=== PATIENT | female | born 1950 | race Caucasian/White ===

== ENCOUNTER → 2017-07-24 08:11 | Outpatient (CLI) | payer MEDICARE, OTHER, SELFPAY ==
[2017-07-24 09:47] LABS: Hemoglobin A1C% w Est Avg Glu 6.3 % (4.0-6.0)
[2017-07-24 09:49] LABS: Add Manual Diff / Slide Review NO; Basophils Percent Auto 1.2 % (0-2); Eosinophils Percent Auto 3.5 % (2-4); Hematocrit 36.5 % (36-46); Hemoglobin 12.1 g/dL (12.0-16.0); Lymphocytes Percent Auto 30.9 % (25-40); Mean Corpuscular HGB Conc 33.3 % (30-36); Mean Corpuscular Hemoglobin 26.6 PG (26-34); Mean Corpuscular Volume 79.8 fL (80-100); Monocytes Percent Auto 7.6 % (3-14); Neutrophils Absolute Auto 3100 /uL (3000-5900); Neutrophils Percent Auto 56.8 % (50-75); Platelet Count 228 X10^3/uL (150-400); Red Blood Cell Count 4.57 X10^6/uL (4.0-5.2); Red Cell Distribution Width 15.6 % (11.6-14.8); White Blood Cell Count 5.5 X10^3/uL (4.5-11.0)
[2017-07-24 10:18] LABS: HEMOLYSIS < 15 (0-50); Iron 48 ug/dL (37-170)
[2017-07-24 10:29] LABS: Transferrin 338 mg/dL (206-381)
[2017-07-24 10:31] LABS: Aspartate Aminotransferase 16 IU/L (14-36); BUN Creatinine Ratio 31.7 (6-22); Calcium 9.9 mg/dL (8.4-10.2); Cholesterol 195 mg/dL (140-199); Estimated Glomerular Filt Rate > 60.0 mL/min (>60); Glucose 120 mg/dL (80-110); HDL Cholesterol 65 mg/dL (40-60); HEMOLYSIS < 15 (0-50); LDL Cholesterol Calculated 103 mg/dL (<100); Sodium 141 mmol/L (137-145); Triglycerides 137 mg/dL (35-150)
[2017-07-24 10:33] LABS: Vitamin D 25 Hydroxy (D3) 47.5 ng/mL (30.0-100.0)
[2017-07-24 10:58] LABS: Ferritin 12.4 ng/mL (11.1-264)
[2017-07-24 11:05] LABS: Creatinine Urine Random 31.6 mg/dL; Protein (Total) Urine Random 16 mg/dL (0-12)
[2017-07-24 12:30] LABS: Percent Iron Saturation 11 % (15-50); Total Iron Binding Capacity 423 ug/mL (265-497)
== END ==
PROVIDERS: Family Provider Internal Medicine; PCP Internal Medicine; Visit Provider Internal Medicine
DX: E11.9 Type 2 diabetes mellitus without complications (principal); E78.00 Pure hypercholesterolemia, unspecified; D50.9 Iron deficiency anemia, unspecified; I10 Essential (primary) hypertension; E55.9 Vitamin D deficiency, unspecified
CPT/HCPCS: 36415; 80048; 80061; 82306; 82570; 82728; 83036; 83540; 83550; 84156; 84450; 85025

== ENCOUNTER → 2017-12-10 09:21 | Outpatient (CLI) | payer MEDICARE, OTHER, SELFPAY ==
--- NOTE | 2017-12-10 | DI.MG.S_ITS ---
BILATERAL DIGITAL SCREENING MAMMOGRAM 3D/2D WITH CAD: 12/10/2017 CLINICAL: Routine screening. Comparison is made to exams dated: 11/03/2013 mammogram, 12/15/2011 mammogram, 08/28/2010 mammogram, and 01/02/2015 mammogram - [facility]. The tissue of both breasts is heterogeneously dense. This may lower the sensitivity of mammography. Current study was also evaluated with a Computer Aided Detection (CAD) system. No significant masses, calcifications, or other findings are seen in either breast. There has been no significant interval change. IMPRESSION: NEGATIVE There is no mammographic evidence of malignancy. A 1 year screening mammogram is recommended. NOTE: For mammograms, a report in lay terms will be sent to the patient. Approximately 15% of breast malignancies will not be visualized mammographically. In the management of a palpable breast mass, a negative mammogram must not discourage biopsy of a clinically suspicious lesion. Electronically Signed By: Abisai wilkerson/esperanza:12/10/2017 10:42:44 letter sent: Normal Exam ACR BI-RADS Category 1: Negative 3341F
== END ==
PROVIDERS: Family Provider Internal Medicine; PCP Internal Medicine; Visit Provider Internal Medicine
DX: Z12.31 Encounter for screening mammogram for malignant neoplasm of breast (principal)
CPT/HCPCS: 77063; 77067

== ENCOUNTER → 2018-05-31 09:35 | Outpatient (CLI) | payer MEDICARE, OTHER, SELFPAY ==
--- NOTE | 2018-05-31 10:02 | DI.CT.S_ITS ---
PROCEDURE: CT HEAD/BRAIN WO CON INDICATIONS: Mild cognitive impairment TECHNIQUE: Noncontrast 4.5 mm thick angled axial sections acquired from the foramen magnum to the vertex, with coronal and sagittal reformats. For radiation dose reduction, the following was used: automated exposure control, adjustment of mA and/or kV according to patient size. COMPARISON: Outside Facility, RG, CT HEAD W/O CONTRAST, 05/01/2016, 11:46. FINDINGS: Image quality: Excellent. CSF spaces: Basal cisterns are patent. No extra-axial fluid collections. The ventricles are symmetric in size and shape. Brain: No intracranial bleeds or masses. There is cerebral volume loss for age, with resultant ventricular and sulcal prominence. There are periventricular and deep white matter chronic small vessel ischemic changes. There is intracranial internal carotid artery atherosclerosis. Skull and face: Calvarium and visualized facial bones appear intact, without suspicious lesions. Sinuses: Mucosal thickening noted in the visualized right maxillary sinus. The mastoids are clear. IMPRESSION: 1. No acute intracranial disease process. 2. Mild, diffuse cerebral volume loss 3. Mild periventricular and subcortical white matter chronic microvascular ischemic changes. Dictated by: Mone Pastrana MD, PhD on 05/31/2018 at 12:46 Approved by: Mone Pastrana MD, PhD on 05/31/2018 at 12:49
== END ==
PROVIDERS: PCP Internal Medicine; Visit Provider Internal Medicine
DX: G31.84 Mild cognitive impairment of uncertain or unknown etiology (principal); R41.81 Age-related cognitive decline
CPT/HCPCS: 70450

== ENCOUNTER → 2018-11-09 15:34 | Outpatient (CLI) | payer MEDICARE, OTHER, SELFPAY ==
--- NOTE | 2018-11-09 | DI.US.S_ITS ---
PROCEDURE: US ABDOMEN LIMITED INDICATIONS: EPIGASTRIC PAIN, N/V TECHNIQUE: Real-time focused scanning was performed of the abdomen, with image documentation. COMPARISON: None. FINDINGS: Liver is diffusely increased in echogenicity. No focal hepatic abnormalities identified. Normal hepatic size. No gallstones identified. Normal gallbladder wall. No pericholecystic fluid. Negative sonographic Kevin sign. No biliary dilatation. IMPRESSION: Minimally increased hepatic echogenicity noted possibly related to hepatic steatosis but other sources of hepatocellular disease cannot be excluded. Recommend clinical correlation. Dictated by: Jeremie CHAND Interpreted: Ana Morales MD on 11/09/2018 at 16:26 Approved by: Ana Morales M.D. on 11/09/2018 at 17:59
== END ==
PROVIDERS: PCP Internal Medicine; Visit Provider Internal Medicine
DX: R10.13 Epigastric pain (principal); R11.2 Nausea with vomiting, unspecified
CPT/HCPCS: 76705

== ENCOUNTER 2019-01-12 15:39 | Emergency (ER) | payer MEDICARE, OTHER, SELFPAY ==
[2019-01-12 15:46] VITALS: BP 170/90; PULSE 83; RESP 18; TEMP 37.3; O2SAT 97; BMI 26.6
--- NOTE | 2019-01-12 16:17 | ED.GENADULT ---
HPI - General Adult General Chief complaint: Abdominal Pain Stated complaint: upper abdominal pain,vomiting,not feeling well Time Seen by Provider: 01/12/19 16:13 Source: patient Mode of arrival: Wheelchair Limitations: no limitations History of Present Illness HPI narrative: 68-year-old female sent over from her primary doctor's office for evaluation of epigastric/right upper quadrant abdominal pain. Patient does state she has been evaluated for gallbladder issues in the past. She does state is bilateral upper abdominal pain. Some nausea no vomiting. No urinary symptoms. No change in her stool. Primary provider was concerned about potential gallbladder pathology. Patient states that she is normally on omeprazole however has been off of it for the past week she has been taking her 's famotidine since that time. She also took some Pepto-Bismol last evening which seemed to help her symptoms quite a bit. Related Data Home Medications Medication Instructions Recorded Confirmed AMLODIPINE BESYLATE (NORVASC) 5 mg PO Q AM #0 08/05/09 CHOLECALCIFEROL (VITAMIN D3) 2,000 iu PO Q AM #0 08/05/09 (Vitamin D3) Cetirizine Hydrochloride (Zyrtec) 10 mg PO Q AM #0 08/05/09 HYDROCHLOROTHIAZIDE (Hydrodiuril / 25 mg PO Q AM #0 08/05/09 Hctz) VITAMIN C - 1,000 mg PO BID #0 08/05/09 (VITAMIN C) gabapentin [Neurontin] PRN PRN #0 01/31/16 Previous Rx's Medication Instructions Recorded oxycodone 5 mg PO Q4HP PRN #60 tab 10/30/16 acetaminophen 325 mg PO Q4HP PRN #60 tab 10/31/16 aspirin 81 mg PO BID #60 tab 10/31/16 Allergies Allergy/AdvReac Type Severity Reaction Status Date / Time lisinopril [LISINOPRIL] Allergy Severe ANGIOEDEMA Unverified 01/12/19 16:34 alendronate sodium Allergy Unknown BODY Unverified 01/12/19 16:34 [ALENDRONATE SODIUM] ACHES, DIARRHEA-UNKNOWN SEVERITY PER PT hydrocodone [HYDROCODONE] Allergy Unknown UNCONTROLLABLE Unverified 01/12/19 16:34 DIARRHEA, VOMITING-DOESN'T REMEMBER PER PT Penicillins [PENICILLINS] Allergy Unknown RASH-UNKNOWN Unverified 01/12/19 16:34 SEVERITY PER PT tramadol [TRAMADOL] Allergy Unknown UNKNOWN Unverified 01/12/19 16:34 REACTION PER PT hydroxyzine [From VISTARIL] AdvReac Unknown PT BECOMES Unverified 01/12/19 16:34 VERY DISORIENTED Review of Systems Constitutional Constitutional: Denies fever(s) Cardiovascular Cardiovascular: Denies chest pain and Denies dyspnea Respiratory Respiratory: Denies dyspnea Gastrointestinal Gastrointestinal: Reports abdominal pain, Denies change in stool character, Reports nausea and Denies vomiting Genitourinary Genitourinary: Denies dysuria Musculoskeletal Musculoskeletal: Denies myalgias and Denies arthralgias Integumentary/Breasts Skin/Breast: Denies lesions and Denies rash Neurologic Neurologic: Denies behavioral changes Psychiatric Psychiatric: Denies behavioral changes Hematologic/Lymphatic Hematologic/Lymphatic: Denies easy bleeding and Denies easy bruising Patient History Medical History Gastroesophageal reflux disease (Acute) Hyperlipidemia (Inactive) Hypertension (Inactive) Social History Smoking Status: Never smoker alcohol intake frequency: holidays/special occasions only Substance Use Type: does not use Exam Initial Vital Signs Initial Vital Signs: Vital Signs Temperature 99.2 F 01/12/19 15:46 Pulse Rate 83 01/12/19 15:46 Respiratory Rate 18 01/12/19 15:46 Blood Pressure 170/90 H 01/12/19 15:46 Pulse Oximetry 97 01/12/19 15:46 Const General: cooperative and comfortable Orientation: alert, awake and oriented x3 Resp Effort & Inspection: normal respiratory effort Auscultation: clear to auscultation bilaterally Cardio Rate: regular rate Rhythm: regular rhythm GI Inspection: non-distended Palpation: soft, No firm and tender (Bilateral upper abdominal pain) Back/Spine/Pelvis Back: No CVA tenderness Skin Lesions: no lesions Rashes: no rashes Neuro General: alert and awake Cognition: normal cognition Speech: speech normal Extrem General: normal to inspection, capillary refill normal and No edema Psych Appearance: grossly normal and well kempt Course Orders Ordered: ED Orders 01/12/19 16:15 Complete Blood Count AUTO DIFF Stat Partial Thromboplastin Time Stat Prothrombin Time INR Stat 01/12/19 16:23 EKG-12 Lead Stat 01/12/19 16:24 US abdomen limited Stat 01/12/19 17:04 Comprehensive Metabolic Panel Stat Lipase Stat Discontinued Medications Acetaminophen (Tylenol) 975 mg PO NOW ONE Stop: 01/12/19 18:46 Last Admin: 01/12/19 18:54 Dose: 975 mg Documented by: NIGEL Sodium Chloride (Normal Saline 0.9%) 1,000 mls @ 1,000 mls/hr IV BOLUS ONE Stop: 01/12/19 17:33 Last Infusion: 01/12/19 18:02 Dose: 0 mls/hr Documented by: Admin: 01/12/19 16:35 Dose: 1,000 mls/hr Documented by: PRERNA Ondansetron HCl (Zofran) 4 mg IV NOW ONE Stop: 01/12/19 16:34 Last Admin: 01/12/19 16:42 Dose: 4 mg Documented by: PRERNA Pantoprazole Sodium (Protonix) 40 mg IV NOW ONE Stop: 01/12/19 16:24 Last Admin: 01/12/19 16:35 Dose: 40 mg Documented by: PRERNA Vital Signs Vital signs: Vital Signs - 8 hr 01/12/19 15:46 01/12/19 17:12 01/12/19 18:00 Temperature 99.2 F Pulse Rate 83 76 62 Respiratory Rate 18 17 15 Blood Pressure 170/90 H Blood Pressure [Right Arm] 147/68 H 124/61 Pulse Oximetry 97 93 100 01/12/19 18:58 Temperature Pulse Rate 60 Respiratory Rate 18 Blood Pressure Blood Pressure [Right Arm] 122/78 Pulse Oximetry 98 Medical Decision Making Lab Data Lab results reviewed: Yes I reviewed the patient's lab results. Result diagrams: 01/12/19 16:15 01/12/19 17:04 Labs: Lab Results 01/12/19 01/12/19 01/12/19 Range/Units 16:15 16:15 17:04 WBC 11.0 (4.5-11.0) X10^3/uL RBC 4.89 (4.0-5.2) X10^6/uL Hgb 11.7 L (12.0-16.0) g/dL Hct 36.4 (36-46) % MCV 74.3 L (80-100) fL MCH 24.0 L (26-34) PG MCHC 32.2 (30-36) % RDW 15.9 H (11.6-14.8) % Plt Count 326 (150-400) X10^3/uL Neut % (Auto) 81.2 H (50-75) % Lymph % (Auto) 10.7 L (25-40) % [place] % (Auto) 7.8 (3-14) % Eos % (Auto) 0.0 L (2-4) % Baso % (Auto) 0.3 (0-2) % Neut # (Auto) 8900 H (6447-8384) /uL Lymph # (Auto) 1200 (4306-1461) /uL [place] # (Auto) 900 (0-900) /uL Eos # (Auto) 0 (0-450) /uL Baso # (Auto) 0 (0-100) /uL PT 11.9 (10.1-12.7) SECONDS INR 1.0 (0.9-1.3) APTT 30 (26.4-36.2) SECONDS Sodium 139 (137-145) mmol/L Potassium 2.8 L (3.4-5.1) mmol/L Chloride 100 (98-107) mmol/L Carbon Dioxide 27 (22-32) mmol/L BUN 15 (7-17) mg/dL Creatinine 0.60 (0.52-1.04) mg/dL Estimated GFR > 60.0 (>60) mL/min BUN/Creatinine Ratio 25.0 H (6-22) Glucose 173 H (80-110) mg/dL Calcium 9.4 (8.4-10.2) mg/dL Total Bilirubin 0.5 (0.2-1.3) mg/dL AST 23 (14-36) IU/L ALT 9 (<35) IU/L Alkaline Phosphatase 105 (38-126) U/L Total Protein 8.1 (6.3-8.2) g/dL Albumin 4.6 (3.5-5.0) g/dL Globulin 3.5 (1.7-4.1) g/dL Albumin/Globulin Ratio 1.3 (1.0-2.8) Lipase 148 (23-300) U/L Imaging Data US - abdomen: Radiologist's impression: [address] [address] Ultrasound Report Signed Patient: Edith Marquis LMR#: [id number] : 1950Acct:[id number] Age/Sex: 68 / FDate of Service: 01/12/19 Loc: ED Accession Number: [id number] Procedure: US abdomen limited Ordering Provider: Dejon Marin D.O. PROCEDURE: US ABDOMEN LIMITED INDICATIONS: RIGHT UPPER QUADRANT PAIN EVALUATE FOR GALLBLADDER PATHOLOGY TECHNIQUE: Real-time focused scanning was performed of the abdomen, with image documentation. COMPARISON: [facility], US ABDOMEN LIMITED, 11/09/2018, 15:53. FINDINGS: Imaged portions of the liver appear to be within normal limits. No focal liver lesions are identified. There is no intrahepatic or extrahepatic biliary dilatation. The common bile duct measures approximately 4 mm in diameter. There is no cholelithiasis or evidence to suggest gallbladder wall inflammation. The pancreas is within normal limits. Imaged portions of the right kidney are grossly unremarkable, but not adequately evaluated on this study. No obvious hydronephrosis is appreciated. The abdominal aorta and inferior vena cava were not imaged. No significant free fluid is seen within the right upper quadrant. IMPRESSION: No cholelithiasis or evidence of acute cholecystitis. Dictated by: Saad Giang M.D. on 01/12/2019 at 16:15 Approved by: Saad Giang M.D. on 01/12/2019 at 16:16 ECG Data Attestation: I personally reviewed and interpreted this ECG as follows: Prior ECG tracings: not available for review Interpretation: Sinus rhythm Ventricular rate is 77 ST depression in V4 no other ST T wave changes MDM Narrative Medical decision making narrative: Patient's ultrasound shows no acute gallbladder pathology. Her labs are unremarkable. Patient states that she reports a great improvement of her pain after the Protonix here in the ER. I do suspect that her symptoms are related to reflux disease. She has been off of are omeprazole for the past couple days. She has a new refill of this ready to take at home. We discussed return precautions and follow-up instructions. Will hold on further workup for now. Patient and was at bedside expressed understanding and agreement plan. Discharge Plan Departure Patient Disposition: Home Clinical Impression: Abdominal pain Qualifiers: Abdominal location: epigastric Qualified Code(s): R10.13 - Epigastric pain Discharge Date/Time: 01/12/19 19:00 Instructions: DI for Abdominal Pain-Adult Activity Restrictions/Additional Instructions: Take all your medications as directed. Contact your primary provider for follow-up. Return to the emergency department for any new or worsening symptoms Prescriptions: No Action AMLODIPINE BESYLATE (NORVASC) 5 mg PO Q AM Qty: 0 RF: 0 HYDROCHLOROTHIAZIDE (Hydrodiuril / Hctz) 25 mg PO Q AM Qty: 0 RF: 0 Cetirizine Hydrochloride (Zyrtec) 10 mg PO Q AM Qty: 0 RF: 0 CHOLECALCIFEROL (VITAMIN D3) (Vitamin D3) 2,000 iu PO Q AM Qty: 0 RF: 0 VITAMIN C - (VITAMIN C) 1,000 mg PO BID Qty: 0 RF: 0 gabapentin [Neurontin] 300 MG capsule PRN PRNQty: 0 RF: 0 oxycodone 5 MG tablet 5 mg PO Q4HP PRNQty: 60 RF: 0 acetaminophen 325 MG tablet 325 mg PO Q4HP PRNQty: 60 RF: 0 aspirin 81 MG tablet,delayed release (DR/EC) 81 mg PO BID Qty: 60 RF: 0 Referrals: Brett Silverman MD [Primary Care Provider] -
[2019-01-12 16:23] LABS: Add Manual Diff / Slide Review NO; Basophils Absolute Auto 0 /uL (0-100); Basophils Percent Auto 0.3 % (0-2); Eosinophils Absolute Auto 0 /uL (0-450); Hematocrit 36.4 % (36-46); Hemoglobin 11.7 g/dL (12.0-16.0); Lymphocytes Absolute Auto 1200 /uL (1100-4500); Lymphocytes Percent Auto 10.7 % (25-40); Mean Corpuscular HGB Conc 32.2 % (30-36); Mean Corpuscular Volume 74.3 fL (80-100); Monocytes Absolute Auto 900 /uL (0-900); Monocytes Percent Auto 7.8 % (3-14); Neutrophils Absolute Auto 8900 /uL (1500-7000); Neutrophils Percent Auto 81.2 % (50-75); Platelet Count 326 X10^3/uL (150-400); Red Blood Cell Count 4.89 X10^6/uL (4.0-5.2); Red Cell Distribution Width 15.9 % (11.6-14.8)
--- NOTE | 2019-01-12 16:24 | DI.US.S_ITS ---
PROCEDURE: US ABDOMEN LIMITED INDICATIONS: RIGHT UPPER QUADRANT PAIN EVALUATE FOR GALLBLADDER PATHOLOGY TECHNIQUE: Real-time focused scanning was performed of the abdomen, with image documentation. COMPARISON: [facility], , US ABDOMEN LIMITED, 11/09/2018, 15:53. FINDINGS: Imaged portions of the liver appear to be within normal limits. No focal liver lesions are identified. There is no intrahepatic or extrahepatic biliary dilatation. The common bile duct measures approximately 4 mm in diameter. There is no cholelithiasis or evidence to suggest gallbladder wall inflammation. The pancreas is within normal limits. Imaged portions of the right kidney are grossly unremarkable, but not adequately evaluated on this study. No obvious hydronephrosis is appreciated. The abdominal aorta and inferior vena cava were not imaged. No significant free fluid is seen within the right upper quadrant. IMPRESSION: No cholelithiasis or evidence of acute cholecystitis. Dictated by: Saad Giang M.D. on 01/12/2019 at 16:15 Approved by: Saad Giang M.D. on 01/12/2019 at 16:16
[2019-01-12 16:35] LABS: Prothrombin Time 11.9 SECONDS (10.1-12.7)
[2019-01-12] MEDS: SODIUM CHLORIDE 0.9% 1,000 ML 1000 ML IV (16:35)
[2019-01-12] MEDS: PANTOPRAZOLE 40 MG VIAL IV (16:35)
[2019-01-12 16:38] LABS: PTT Partial Thromboplastin Tim 30 SECONDS (26.4-36.2)
[2019-01-12] MEDS: ONDANSETRON 4 MG/2 ML INJ IV (16:42)
[2019-01-12 17:12] VITALS: BP 147/68; PULSE 76; RESP 17; O2SAT 93
[2019-01-12 17:33] LABS: Alanine Aminotransferase 9 IU/L (<35); Albumin 4.6 g/dL (3.5-5.0); Albumin Globulin Ratio 1.3 (1.0-2.8); Alkaline Phosphatase 105 U/L (38-126); Aspartate Aminotransferase 23 IU/L (14-36); Bilirubin Total 0.5 mg/dL (0.2-1.3); Blood Urea Nitrogen 15 mg/dL (7-17); Calcium 9.4 mg/dL (8.4-10.2); Carbon Dioxide 27 mmol/L (22-32); Chloride 100 mmol/L (98-107); Estimated Glomerular Filt Rate > 60.0 mL/min (>60); Globulin 3.5 g/dL (1.7-4.1); Glucose 173 mg/dL (80-110); HEMOLYSIS < 15 (0-50); Lipase 148 U/L (23-300); Potassium 2.8 mmol/L (3.4-5.1); Sodium 139 mmol/L (137-145); Total Protein 8.1 g/dL (6.3-8.2)
[2019-01-12 18:00] VITALS: BP 124/61; PULSE 62; RESP 15; O2SAT 100
[2019-01-12] MEDS: ACETAMINOPHEN 325 MG TABLET 975 MG PO (18:54)
[2019-01-12 18:58] VITALS: BP 122/78; PULSE 60; RESP 18; O2SAT 98
== END 2019-01-12 19:00 | disposition home or self-care (01) ==
PROVIDERS: Emergency Provider Emergency Medicine; PCP Internal Medicine
DX: R10.13 Epigastric pain (principal)
CPT/HCPCS: 36415; 76705; 80053; 83690; 85025; 85610; 85730; 93005; 96361; 96374; 96375; 99283; 99285; C9113; J2405

== ENCOUNTER → 2019-12-05 18:25 | Outpatient (ROUT) | payer MEDICARE, OTHER, SELFPAY ==
[2019-12-05 19:59] LABS: Aspartate Aminotransferase 23 IU/L (14-36); BUN Creatinine Ratio 27.4 (6-22); Blood Urea Nitrogen 17 mg/dL (7-17); Calcium 10.3 mg/dL (8.4-10.2); Carbon Dioxide 31 mmol/L (22-32); Chloride 100 mmol/L (98-107); Cholesterol 211 mg/dL (140-199); Estimated Glomerular Filt Rate > 60.0 mL/min (>60); Glucose 118 mg/dL (80-110); HDL Cholesterol 75 mg/dL (40-60); HEMOLYSIS < 15 (0-50); LDL Cholesterol Calculated 102 mg/dL (<100); Potassium 4.2 mmol/L (3.4-5.1); Sodium 139 mmol/L (137-145); Triglycerides 170 mg/dL (35-150)
[2019-12-05 20:00] LABS: Add Manual Diff / Slide Review NO; Basophils Absolute Auto 100 /uL (0-100); Basophils Percent Auto 1.2 % (0-2); Eosinophils Absolute Auto 200 /uL (0-450); Eosinophils Percent Auto 2.4 % (2-4); Hematocrit 34.3 % (36-46); Hemoglobin 10.9 g/dL (12.0-16.0); Lymphocytes Absolute Auto 2000 /uL (1100-4500); Lymphocytes Percent Auto 25.2 % (25-40); Mean Corpuscular HGB Conc 31.9 % (30-36); Mean Corpuscular Hemoglobin 24.1 PG (26-34); Mean Corpuscular Volume 75.8 fL (80-100); Monocytes Absolute Auto 700 /uL (0-900); Monocytes Percent Auto 8.2 % (3-14); Neutrophils Absolute Auto 5000 /uL (1500-7000); Platelet Count 295 X10^3/uL (150-400); Red Blood Cell Count 4.52 X10^6/uL (4.0-5.2)
[2019-12-05 20:29] LABS: TSH w/ Reflex to FT4 1.67 uIU/mL (0.47-4.68)
== END ==
PROVIDERS: PCP Internal Medicine; Visit Provider Internal Medicine
DX: I10 Essential (primary) hypertension (principal); E78.2 Mixed hyperlipidemia
CPT/HCPCS: 80048; 80061; 84443; 84450; 85025

== ENCOUNTER → 2019-12-19 10:37 | Outpatient (CLI) | payer MEDICARE, OTHER, SELFPAY ==
[2019-12-19 11:10] LABS: Add Manual Diff / Slide Review NO; Basophils Absolute Auto 100 /uL (0-100); Eosinophils Absolute Auto 100 /uL (0-450); Eosinophils Percent Auto 1.8 % (2-4); Hemoglobin 10.9 g/dL (12.0-16.0); Lymphocytes Absolute Auto 1900 /uL (1100-4500); Lymphocytes Percent Auto 25.8 % (25-40); Mean Corpuscular Hemoglobin 24.3 PG (26-34); Mean Corpuscular Volume 76.1 fL (80-100); Monocytes Absolute Auto 500 /uL (0-900); Neutrophils Absolute Auto 4900 /uL (1500-7000); Neutrophils Percent Auto 65.4 % (50-75); Platelet Count 283 X10^3/uL (150-400); Red Blood Cell Count 4.48 X10^6/uL (4.0-5.2); Red Cell Distribution Width 16.8 % (11.6-14.8); White Blood Cell Count 7.5 X10^3/uL (4.5-11.0)
[2019-12-19 11:23] LABS: HEMOLYSIS < 15 (0-50); Iron 48 ug/dL (37-170)
[2019-12-19 11:37] LABS: Percent Iron Saturation 10 % (15-50); Total Iron Binding Capacity 465 ug/dL (265-497); Transferrin 414 mg/dL (206-381)
[2019-12-19 12:03] LABS: Ferritin 6 ng/mL (11-264)
[2019-12-19 12:16] LABS: Vitamin B12 733 pg/mL (239-931)
== END ==
PROVIDERS: PCP Internal Medicine; Referring Provider Internal Medicine; Visit Provider Internal Medicine
DX: D50.9 Iron deficiency anemia, unspecified (principal); E53.8 Deficiency of other specified B group vitamins
CPT/HCPCS: 36415; 82607; 82728; 83540; 83550; 85025

== ENCOUNTER → 2020-07-17 19:40 | Outpatient (ROUT) | payer MEDICARE, OTHER, SELFPAY ==
[2020-07-17 20:03] LABS: Add Manual Diff / Slide Review NO; Basophils Absolute Auto 100 /uL (0-100); Eosinophils Absolute Auto 200 /uL (0-450); Eosinophils Percent Auto 3.4 % (2-4); Hematocrit 38.1 % (36-46); Hemoglobin 12.4 g/dL (12.0-16.0); Lymphocytes Absolute Auto 1900 /uL (1100-4500); Lymphocytes Percent Auto 26.3 % (25-40); Mean Corpuscular HGB Conc 32.5 % (30-36); Mean Corpuscular Hemoglobin 27.3 PG (26-34); Mean Corpuscular Volume 84.1 fL (80-100); Monocytes Absolute Auto 500 /uL (0-900); Monocytes Percent Auto 7.5 % (3-14); Neutrophils Absolute Auto 4400 /uL (1500-7000); Neutrophils Percent Auto 61.8 % (50-75); Platelet Count 258 X10^3/uL (150-400); Red Blood Cell Count 4.54 X10^6/uL (4.0-5.2); Red Cell Distribution Width 14.7 % (11.6-14.8); White Blood Cell Count 7.2 X10^3/uL (4.5-11.0)
[2020-07-17 20:16] LABS: HEMOLYSIS < 15 (0-50); Iron 36 ug/dL (37-170)
[2020-07-17 20:20] LABS: Aspartate Aminotransferase 23 IU/L (14-36); BUN Creatinine Ratio 18.9 (6-22); Blood Urea Nitrogen 10 mg/dL (7-17); Calcium 10.5 mg/dL (8.4-10.2); Carbon Dioxide 27 mmol/L (22-32); Chloride 101 mmol/L (98-107); Cholesterol 195 mg/dL (140-199); Estimated Glomerular Filt Rate > 60.0 mL/min (>60); Glucose 141 mg/dL (80-110); HDL Cholesterol 63 mg/dL (40-60); HEMOLYSIS < 15 (0-50); LDL Cholesterol Calculated 87 mg/dL (<100); Sodium 140 mmol/L (137-145); Triglycerides 227 mg/dL (35-150)
[2020-07-17 20:28] LABS: Percent Iron Saturation 8 % (15-50); Total Iron Binding Capacity 431 ug/dL (265-497); Transferrin 366 mg/dL (206-381)
[2020-07-17 20:48] LABS: Ferritin 10 ng/mL (11-264)
== END ==
PROVIDERS: PCP Internal Medicine; Visit Provider Internal Medicine
DX: D50.9 Iron deficiency anemia, unspecified (principal); I10 Essential (primary) hypertension; E78.2 Mixed hyperlipidemia
CPT/HCPCS: 80048; 80061; 82728; 83540; 83550; 84450; 85025

== ENCOUNTER → 2020-07-26 10:00 | Outpatient (CLI) | payer MEDICARE, OTHER, SELFPAY | PROVIDERS: PCP Internal Medicine; Referring Provider Internal Medicine; Visit Provider Internal Medicine | DX: M81.0 Age-related osteoporosis without current pathological fracture (principal); Z78.0 Asymptomatic menopausal state; E11.9 Type 2 diabetes mellitus without complications; Z82.62 Family history of osteoporosis | CPT/HCPCS: 77080 ==

== ENCOUNTER → 2020-11-29 16:09 | Outpatient (CLI) | payer MEDICARE, OTHER, SELFPAY ==
--- NOTE | 2020-11-29 | DI.MG.S_ITS ---
BILATERAL DIGITAL SCREENING MAMMOGRAM 3D/2D WITH CAD: 11/29/2020 CLINICAL: Routine screening. Comparison is made to exams dated: 12/10/2017 mammogram, 07/26/2015 ultrasound, 01/02/2015 mammogram, and 11/10/2013 mammogram - [facility]. The tissue of both breasts is heterogeneously dense. This may lower the sensitivity of mammography. Current study was also evaluated with a Computer Aided Detection (CAD) system. No significant masses, calcifications, or other findings are seen in either breast. There has been no significant interval change. IMPRESSION: NEGATIVE There is no mammographic evidence of malignancy. A 1 year screening mammogram is recommended. This exam was interpreted at Station ID: [id number]. NOTE: For mammograms, a report in lay terms will be sent to the patient. Approximately 15% of breast malignancies will not be visualized mammographically. In the management of a palpable breast mass, a negative mammogram must not discourage biopsy of a clinically suspicious lesion. Electronically Signed By: Vinh Humphrey acr/espreanza:11/29/2020 17:03:08 letter sent: Normal Exam ACR BI-RADS Category 1: Negative 3341F
== END ==
PROVIDERS: PCP Internal Medicine; Referring Provider Internal Medicine; Visit Provider Internal Medicine
DX: Z12.31 Encounter for screening mammogram for malignant neoplasm of breast (principal)
CPT/HCPCS: 77063; 77067

== ENCOUNTER 2021-06-08 06:01 | Emergency (ER) | payer MEDICARE, OTHER, SELFPAY ==
[2021-06-08] VITALS (11 sets, daily range): BP systolic 124–165; BP diastolic 57–77; PULSE 69–79; RESP 16–20; TEMP 36.9; O2SAT 91–100
--- NOTE | 2021-06-08 06:10 | ED_ITS ---
HPI - Nausea/Vomiting/Diarrhea <Jessica Sweeney Marice, DO - Last Filed: 06/09/21 03:26> General Chief complaint: Nausea/Vomiting/Diarrhea Stated complaint: dehydrated/nausea x2 days Time Seen by Provider: 06/08/21 06:10 Source: patient, family () and old records reviewed Mode of arrival: Wheelchair Limitations: no limitations History of Present Illness HPI Narrative: This is a 70-year-old female with known history of hypertension, dyslipidemia, dementia with complaint of chills, nausea and vomiting and generalized body aches as well as epigastric pain starting last night. Patient and had a pastrami sandwich is has been states he has had some gurgling but no other symptoms. Patient felt chilled and felt like she had soaked through her clothes although states she had not. She feels that her whole body hurts everywhere. She denies any chest pain or shortness of breath. No cold, cough or congestive symptoms. She has had some nausea and vomiting this morning. No diarrhea constipation. No black or bloody stools. No dysuria, urgency frequency or incontinence. No vaginal bleeding or discharge. Patient has had a prior UTI where she had significant changes in mental status once before. She has had hip replacements, knee and wrist surgery. No cardiac surgery or stents. No tobacco, alcohol or illicit. She lives with her and ambulates independently. Related Data Home Medications Medication Instructions Recorded Confirmed AMLODIPINE BESYLATE (NORVASC) 5 mg PO Q AM #0 08/05/09 06/08/21 Previous Rx's Medication Instructions Recorded aspirin 81 mg tablet,delayed 81 mg PO BID #60 tab 10/31/16 release Allergies Allergy/AdvReac Type Severity Reaction Status Date / Time lisinopril [LISINOPRIL] Allergy Severe ANGIOEDEMA Verified 06/08/21 12:55 alendronate sodium Allergy Unknown BODY Verified 06/08/21 12:55 [ALENDRONATE SODIUM] ACHES, DIARRHEA-UNKNOWN SEVERITY PER PT hydrocodone [HYDROCODONE] Allergy Unknown UNCONTROLLABLE Verified 06/08/21 12:55 DIARRHEA, VOMITING-DOESN'T REMEMBER PER PT Penicillins [PENICILLINS] Allergy Unknown RASH-UNKNOWN Verified 06/08/21 12:55 SEVERITY PER PT tramadol [TRAMADOL] Allergy Unknown UNKNOWN Verified 06/08/21 12:55 REACTION PER PT hydroxyzine [From VISTARIL] AdvReac Unknown PT BECOMES Verified 06/08/21 12:55 VERY DISORIENTED Review of Systems <Jessica Jack DO - Last Filed: 06/09/21 03:26> Review of Systems ROS Unobtainable: All systems reviewed & are unremarkable except as noted in HPI and below Patient History <Jessica Jack DO - Last Filed: 06/09/21 03:26> Medical History (Updated 06/08/21 @ 10:56 by Tawnya Ken DO) Gastroesophageal reflux disease Hyperlipidemia Hypertension Social History Smoking Status: Never smoker Smoking Status: Never smoker alcohol intake frequency: holidays/special occasions only Substance Use Type: does not use Exam <Jessica Jack DO - Last Filed: 06/09/21 03:26> Narrative Exam Narrative: GEN: well nourished, well appearing elderly female, alert and oriented x 3, patient appears to be in mild distress. HEENT: Atraumatic, pupils are equal round reactive to light, extraocular movements are intact, nares are clear. HEART: Regular rate and rhythm without murmur, clicks, rubs. Pulses are equal in upper and lower extremities LUNGS:Lungs clear to auscultation, no wheezes, rales, crackles, chest moves , no tachypnea or accessory muscle use chest moves symmetrically ABD:bowel sounds normal, soft, mild epigastric tenderness, nondistended, no guarding, rebound, rigidity, no masses noted, no hepatosplenomegaly :No CVA tenderness MSCL: Non-tender, no muscle atrophy, muscles strength 5/5 upper and lower extr emities, full range of motion NEURO:CN 2-12 intact, sensation normal, patient has mild tremor. SKIN: No rash, erythema or other skin changes noted. Initial Vital Signs Initial Vital Signs: Vital Signs Temperature 98.4 F 06/08/21 06:16 Pulse Rate 72 06/08/21 06:16 Respiratory Rate 20 06/08/21 06:16 Blood Pressure 147/67 H 06/08/21 06:16 Pulse Oximetry 100 06/08/21 06:16 <DO Hannah Grubbs Last Filed: 06/08/21 14:35> Initial Vital Signs Initial Vital Signs: Vital Signs Temperature 98.4 F 06/08/21 06:16 Pulse Rate 72 06/08/21 06:16 Respiratory Rate 20 06/08/21 06:16 Blood Pressure 147/67 H 06/08/21 06:16 Pulse Oximetry 100 06/08/21 06:16 Course <Jessica Jack, - Last Filed: 06/09/21 03:26> Orders Ordered: Discontinued Medications Sodium Chloride (Normal Saline 0.9%) 1,000 mls @ 1,000 mls/hr IV BOLUS ONE Stop: 06/08/21 07:24 Last Infusion: 06/08/21 09:47 Dose: 0 mls/hr Documented by: Admin: 06/08/21 06:46 Dose: 1,000 mls/hr Documented by: ROSALBA Sodium Chloride (Normal Saline 0.9%) 1,000 mls @ 1,000 mls/hr IV CONT GAGAN Last Infusion: 06/08/21 11:06 Dose: 0 mls/hr Documented by: Admin: 06/08/21 09:47 Dose: 1,000 mls/hr Documented by: NICK Ondansetron HCl (Ondansetron 4 Mg/2 Ml Inj) 4 mg IV NOW ONE Stop: 06/08/21 06:32 Last Admin: 06/08/21 06:46 Dose: 4 mg Documented by: ROSALBA Ondansetron HCl (Ondansetron 4 Mg/2 Ml Inj) 4 mg IV NOW ONE Stop: 06/08/21 08:43 Last Admin: 06/08/21 08:47 Dose: 4 mg Documented by: NICK Pantoprazole Sodium (Pantoprazole 40 Mg Vial) 40 mg IV NOW ONE Stop: 06/08/21 08:43 Last Admin: 06/08/21 08:47 Dose: 40 mg Documented by: NICK Vital Signs Vital signs: Vital Signs - 8 hr 06/08/21 08:40 06/08/21 08:41 06/08/21 09:00 Pulse Rate 77 77 77 Respiratory Rate 20 Blood Pressure 156/77 H 156/75 H Pulse Oximetry 97 97 98 06/08/21 09:30 06/08/21 10:00 06/08/21 10:01 Pulse Rate 79 77 74 Respiratory Rate Blood Pressure 165/76 H 147/61 H Pulse Oximetry 98 97 94 06/08/21 10:30 06/08/21 11:00 06/08/21 11:28 Pulse Rate 74 69 Respiratory Rate 18 Blood Pressure 138/61 148/70 H Pulse Oximetry 94 91 06/08/21 14:25 Pulse Rate 72 Respiratory Rate 16 Blood Pressure 124/57 L Pulse Oximetry 95 <Tawnya Ken, - Last Filed: 06/08/21 14:35> Orders Ordered: Discontinued Medications Sodium Chloride (Normal Saline 0.9%) 1,000 mls @ 1,000 mls/hr IV BOLUS ONE Stop: 06/08/21 07:24 Last Infusion: 06/08/21 09:47 Dose: 0 mls/hr Documented by: Admin: 06/08/21 06:46 Dose: 1,000 mls/hr Documented by: ROSALBA Sodium Chloride (Normal Saline 0.9%) 1,000 mls @ 1,000 mls/hr IV CONT GAGAN Last Infusion: 06/08/21 11:06 Dose: 0 mls/hr Documented by: Admin: 06/08/21 09:47 Dose: 1,000 mls/hr Documented by: NICK Ondansetron HCl (Ondansetron 4 Mg/2 Ml Inj) 4 mg IV NOW ONE Stop: 06/08/21 06:32 Last Admin: 06/08/21 06:46 Dose: 4 mg Documented by: ROSALBA Ondansetron HCl (Ondansetron 4 Mg/2 Ml Inj) 4 mg IV NOW ONE Stop: 06/08/21 08:43 Last Admin: 06/08/21 08:47 Dose: 4 mg Documented by: NICK Pantoprazole Sodium (Pantoprazole 40 Mg Vial) 40 mg IV NOW ONE Stop: 06/08/21 08:43 Last Admin: 06/08/21 08:47 Dose: 40 mg Documented by: NICK Vital Signs Vital signs: Vital Signs - 8 hr 06/08/21 08:40 06/08/21 08:41 06/08/21 09:00 Pulse Rate 77 77 77 Respiratory Rate 20 Blood Pressure 156/77 H 156/75 H Pulse Oximetry 97 97 98 06/08/21 09:30 06/08/21 10:00 06/08/21 10:01 Pulse Rate 79 77 74 Respiratory Rate Blood Pressure 165/76 H 147/61 H Pulse Oximetry 98 97 94 06/08/21 10:30 06/08/21 11:00 06/08/21 11:28 Pulse Rate 74 69 Respiratory Rate 18 Blood Pressure 138/61 148/70 H Pulse Oximetry 94 91 06/08/21 14:25 Pulse Rate 72 Respiratory Rate 16 Blood Pressure 124/57 L Pulse Oximetry 95 MDM - Nausea/Vomiting/Diarrhea <Jessica Jack, - Last Filed: 06/09/21 03:26> Lab Data Result diagrams: 06/08/21 06:30 06/08/21 06:30 Labs: Lab Results 06/08/21 06/08/21 06/08/21 Range/Units 06:30 06:30 06:30 WBC 8.7 (4.5-11.0) X10^3/uL RBC 4.85 (4.0-5.2) X10^6/uL Hgb 13.0 (12.0-16.0) g/dL Hct 39.2 (36-46) % MCV 80.8 (80-100) fL MCH 26.8 (26-34) PG MCHC 33.1 (30-36) % RDW 15.2 H (11.6-14.8) % Plt Count 268 (150-400) X10^3/uL Neut % (Auto) 88.5 H (50-75) % Lymph % (Auto) 8.6 L (25-40) % [place] % (Auto) 2.2 L (3-14) % Eos % (Auto) 0.0 L (2-4) % Baso % (Auto) 0.7 (0-2) % Neut # (Auto) 7700 H (8165-6408) /uL Lymph # (Auto) 800 L (8386-2932) /uL [place] # (Auto) 200 (0-900) /uL Eos # (Auto) 0 (0-450) /uL Baso # (Auto) 100 (0-100) /uL Sodium 137 (137-145) mmol/L Potassium 3.2 L (3.4-5.1) mmol/L Chloride 99 (98-107) mmol/L Carbon Dioxide 25 (22-32) mmol/L BUN 11 (7-17) mg/dL Creatinine 0.50 L (0.52-1.04) mg/dL Estimated GFR > 60.0 (>60) mL/min BUN/Creatinine Ratio 22.0 (6-22) Glucose 220 H (80-110) mg/dL Lactate 1.4 (0.7-2.1) mmol/L Calcium 10.2 (8.4-10.2) mg/dL Total Bilirubin 0.7 (0.2-1.3) mg/dL AST 25 (14-36) IU/L ALT 10 (<35) IU/L Alkaline Phosphatase 111 (38-126) U/L Total Creatine Kinase 57 (30-135) U/L CK-MB (CK-2) TNP CK-MB (CK-2) Rel Index TNP Troponin I < 0.012 (0.01-0.034) ng/mL Total Protein 8.8 H (6.3-8.2) g/dL Albumin 4.9 (3.5-5.0) g/dL Globulin 3.9 (1.7-4.1) g/dL Albumin/Globulin Ratio 1.3 (1.0-2.8) Lipase 92 (23-300) U/L Procalcitonin 0.05 (<0.5) ng/mL Urine Color Urine Appearance Urine pH (4.5-8.0) Ur Specific [place] (1.000-1.035) Urine Protein (Negative) Urine Glucose (UA) (Negative) g/dL Urine Ketones (NEGATIVE) Urine Occult Blood (Negative) Urine Nitrate (Negative) Urine Bilirubin (NEGATIVE) Urine Urobilinogen (0.2) E.U./dL Ur Leukocyte Esterase (NEGATIVE) Urine RBC (0-5/HPF) Urine WBC (0-5/HPF) Ur Squamous Epith Cells (0-5/HPF) Urine Bacteria (None) Ur Culture Indicated? SARS-CoV-2 (PCR) (Negative) 06/08/21 06/08/21 06/08/21 Range/Units 06:30 09:20 09:50 WBC (4.5-11.0) X10^3/uL RBC (4.0-5.2) X10^6/uL Hgb (12.0-16.0) g/dL Hct (36-46) % MCV (80-100) fL MCH (26-34) PG MCHC (30-36) % RDW (11.6-14.8) % Plt Count (150-400) X10^3/uL Neut % (Auto) (50-75) % Lymph % (Auto) (25-40) % [place] % (Auto) (3-14) % Eos % (Auto) (2-4) % Baso % (Auto) (0-2) % Neut # (Auto) (4591-3302) /uL Lymph # (Auto) (8826-8062) /uL [place] # (Auto) (0-900) /uL Eos # (Auto) (0-450) /uL Baso # (Auto) (0-100) /uL Sodium (137-145) mmol/L Potassium (3.4-5.1) mmol/L Chloride (98-107) mmol/L Carbon Dioxide (22-32) mmol/L BUN (7-17) mg/dL Creatinine (0.52-1.04) mg/dL Estimated GFR (>60) mL/min BUN/Creatinine Ratio (6-22) Glucose (80-110) mg/dL Lactate (0.7-2.1) mmol/L Calcium (8.4-10.2) mg/dL Total Bilirubin (0.2-1.3) mg/dL AST (14-36) IU/L ALT (<35) IU/L Alkaline Phosphatase (38-126) U/L Total Creatine Kinase 57 (30-135) U/L CK-MB (CK-2) TNP CK-MB (CK-2) Rel Index TNP Troponin I < 0.012 (0.01-0.034) ng/mL Total Protein (6.3-8.2) g/dL Albumin (3.5-5.0) g/dL Globulin (1.7-4.1) g/dL Albumin/Globulin Ratio (1.0-2.8) Lipase (23-300) U/L Procalcitonin (<0.5) ng/mL Urine Color Yellow Urine Appearance Sl cloudy Urine pH 7.0 (4.5-8.0) Ur Specific [place] 1.010 (1.000-1.035) Urine Protein 1+ H (Negative) Urine Glucose (UA) Negative (Negative) g/dL Urine Ketones 2+ H (NEGATIVE) Urine Occult Blood 1+ H (Negative) Urine Nitrate Negative (Negative) Urine Bilirubin Negative (NEGATIVE) Urine Urobilinogen 0.2 (0.2) E.U./dL Ur Leukocyte Esterase Trace H (NEGATIVE) Urine RBC 0-1/hpf (0-5/HPF) Urine WBC 10-30/hpf H (0-5/HPF) Ur Squamous Epith Cells 0-1 /hpf (0-5/HPF) Urine Bacteria Many (>30) H (None) Ur Culture Indicated? Specimen cultured SARS-CoV-2 (PCR) Negative (Negative) MDM Narrative Medical decision making narrative: Patient seen initially by myself, sepsis workup was initiated patient is not hypotensive her tachycardia but has had some shaking chills so L bolus was ordered but not 30 cc/kilos fluid bolus. COVID swab. Patient signed out to Dr. Ken while initial work up pending. Patient signed out to me by Dr. Marcie quintero seen evaluated her myself. She really has minimal epigastric pain if any she certainly has no chest pain is I took a while to get her nausea medication and fluids but they seem to have helped. She still does not feel quite her normal self. She is found have UTI but is not septic. She has T-wave inversions and multiple risk factors. She has a history of diabetes hypertension hyperlipidemia. T-wave inversions are certainly more pronounced than they have been in getting more pronounced in the emergency department. She has absolutely no chest pain. She has 2- troponins. No prior history of coronary artery disease. 11:15 Dr. So cardiology has been updated on patient's symptoms test results reviewed EKGs agrees that they are concerning. Recommend stat echocardiogram and PPI. If abnormal echocardiogram patient will need to be transferred for cardiac catheterization. 130 Dr. So has reviewed the echocardiogram which is within normal. At this time she recommend the outpatient follow-up with a probable stress test. T-wave inversion signs are still concerning however no need for admission to the hospital if other symptoms have cleared. Discussed results with patient and has been. They understand they actually have an appointment with PCP in 6 days. She overall is feeling better. <Tawnya Ken, DO - Last Filed: 06/08/21 14:35> Lab Data Labs: Lab Results 06/08/21 06/08/21 06/08/21 Range/Units 06:30 06:30 06:30 WBC 8.7 (4.5-11.0) X10^3/uL RBC 4.85 (4.0-5.2) X10^6/uL Hgb 13.0 (12.0-16.0) g/dL Hct 39.2 (36-46) % MCV 80.8 (80-100) fL MCH 26.8 (26-34) PG MCHC 33.1 (30-36) % RDW 15.2 H (11.6-14.8) % Plt Count 268 (150-400) X10^3/uL Neut % (Auto) 88.5 H (50-75) % Lymph % (Auto) 8.6 L (25-40) % [place] % (Auto) 2.2 L (3-14) % Eos % (Auto) 0.0 L (2-4) % Baso % (Auto) 0.7 (0-2) % Neut # (Auto) 7700 H (0918-6641) /uL Lymph # (Auto) 800 L (3628-6202) /uL [place] # (Auto) 200 (0-900) /uL Eos # (Auto) 0 (0-450) /uL Baso # (Auto) 100 (0-100) /uL Sodium 137 (137-145) mmol/L Potassium 3.2 L (3.4-5.1) mmol/L Chloride 99 (98-107) mmol/L Carbon Dioxide 25 (22-32) mmol/L BUN 11 (7-17) mg/dL Creatinine 0.50 L (0.52-1.04) mg/dL Estimated GFR > 60.0 (>60) mL/min BUN/Creatinine Ratio 22.0 (6-22) Glucose 220 H (80-110) mg/dL Lactate 1.4 (0.7-2.1) mmol/L Calcium 10.2 (8.4-10.2) mg/dL Total Bilirubin 0.7 (0.2-1.3) mg/dL AST 25 (14-36) IU/L ALT 10 (<35) IU/L Alkaline Phosphatase 111 (38-126) U/L Total Creatine Kinase 57 (30-135) U/L CK-MB (CK-2) TNP CK-MB (CK-2) Rel Index TNP Troponin I < 0.012 (0.01-0.034) ng/mL Total Protein 8.8 H (6.3-8.2) g/dL Albumin 4.9 (3.5-5.0) g/dL Globulin 3.9 (1.7-4.1) g/dL Albumin/Globulin Ratio 1.3 (1.0-2.8) Lipase 92 (23-300) U/L Procalcitonin 0.05 (<0.5) ng/mL Urine Color Urine Appearance Urine pH (4.5-8.0) Ur Specific [place] (1.000-1.035) Urine Protein (Negative) Urine Glucose (UA) (Negative) g/dL Urine Ketones (NEGATIVE) Urine Occult Blood (Negative) Urine Nitrate (Negative) Urine Bilirubin (NEGATIVE) Urine Urobilinogen (0.2) E.U./dL Ur Leukocyte Esterase (NEGATIVE) Urine RBC (0-5/HPF) Urine WBC (0-5/HPF) Ur Squamous Epith Cells (0-5/HPF) Urine Bacteria (None) Ur Culture Indicated? SARS-CoV-2 (PCR) (Negative) 06/08/21 06/08/21 06/08/21 Range/Units 06:30 09:20 09:50 WBC (4.5-11.0) X10^3/uL RBC (4.0-5.2) X10^6/uL Hgb (12.0-16.0) g/dL Hct (36-46) % MCV (80-100) fL MCH (26-34) PG MCHC (30-36) % RDW (11.6-14.8) % Plt Count (150-400) X10^3/uL Neut % (Auto) (50-75) % Lymph % (Auto) (25-40) % [place] % (Auto) (3-14) % Eos % (Auto) (2-4) % Baso % (Auto) (0-2) % Neut # (Auto) (1077-9253) /uL Lymph # (Auto) (0047-6226) /uL [place] # (Auto) (0-900) /uL Eos # (Auto) (0-450) /uL Baso # (Auto) (0-100) /uL Sodium (137-145) mmol/L Potassium (3.4-5.1) mmol/L Chloride (98-107) mmol/L Carbon Dioxide (22-32) mmol/L BUN (7-17) mg/dL Creatinine (0.52-1.04) mg/dL Estimated GFR (>60) mL/min BUN/Creatinine Ratio (6-22) Glucose (80-110) mg/dL Lactate (0.7-2.1) mmol/L Calcium (8.4-10.2) mg/dL Total Bilirubin (0.2-1.3) mg/dL AST (14-36) IU/L ALT (<35) IU/L Alkaline Phosphatase (38-126) U/L Total Creatine Kinase 57 (30-135) U/L CK-MB (CK-2) TNP CK-MB (CK-2) Rel Index TNP Troponin I < 0.012 (0.01-0.034) ng/mL Total Protein (6.3-8.2) g/dL Albumin (3.5-5.0) g/dL Globulin (1.7-4.1) g/dL Albumin/Globulin Ratio (1.0-2.8) Lipase (23-300) U/L Procalcitonin (<0.5) ng/mL Urine Color Yellow Urine Appearance Sl cloudy Urine pH 7.0 (4.5-8.0) Ur Specific [place] 1.010 (1.000-1.035) Urine Protein 1+ H (Negative) Urine Glucose (UA) Negative (Negative) g/dL Urine Ketones 2+ H (NEGATIVE) Urine Occult Blood 1+ H (Negative) Urine Nitrate Negative (Negative) Urine Bilirubin Negative (NEGATIVE) Urine Urobilinogen 0.2 (0.2) E.U./dL Ur Leukocyte Esterase Trace H (NEGATIVE) Urine RBC 0-1/hpf (0-5/HPF) Urine WBC 10-30/hpf H (0-5/HPF) Ur Squamous Epith Cells 0-1 /hpf (0-5/HPF) Urine Bacteria Many (>30) H (None) Ur Culture Indicated? Specimen cultured SARS-CoV-2 (PCR) Negative (Negative) Imaging Data CT scan - abdomen/pelvis: Radiologist's Impression: PROCEDURE:? CT ABDOMEN PELVIS W CON ? INDICATIONS:? +n/v ? TECHNIQUE:? After the administration of oral and IV contrast, axial sections were acquired from the lung bases to the pubic symphysis.? Coronal and sagittal reformats were performed.? For radiation dose reduction, the following was used:? automated exposure control, adjustment of mA and/or kV according to patient size. ? COMPARISON:? [facility], ABDOMEN LIMITED, 11/09/2018, 15:53.? [facility], ABDOMEN LIMITED, 01/12/2019, 16:41. ? FINDINGS:? Image quality:? There is artifact associated with the metallic hardware. ? ? Lung bases:? Unremarkable.? ? Heart:? No significant findings. ? ? ABDOMEN: Liver:? Unremarkable.? ? Gallbladder:? Unremarkable.? ? Biliary ducts:? Unremarkable.? ? Pancreas:? Unremarkable.? ? Spleen:? Unremarkable.? ? Adrenal Glands:? Unremarkable.? ? Kidneys and Ureters:? There is a low-density lesion seen along the anterior aspect of the left kidney that measures 2.7 cm and 29 Hounsfield units.? Smaller likely cystic lesions are seen elsewhere within the kidneys.? The kidneys demonstrate normal size and enhance symmetrically.? There is no hydronephrosis. ? Stomach and Bowel:? Focal generalized wall thickening is seen of the duodenum, with surrounding inflammatory change.? Stomach, small bowel loops, and colon are otherwise unremarkable.? Peritoneum:? No abnormal intraperitoneal fluid.? No free air.? ? Ventral Wall: ? No hernia.? Abdominal Nodes:? No retroperitoneal or mesenteric adenopathy by size criteria.? Vessels:? Aorta and inferior vena cava are normal in size.? ? PELVIS: Pelvic Organs:? The uterus demonstrates normal size.? Within the right adnexal region, there is a septated cystic lesion seen with calcification that measures 5.4 x 5.4 cm in greatest axial dimension. Bladder:? Unremarkable.? ? Pelvic Nodes: No enlarged lymph nodes.? Miscellaneous: No inguinal hernias are seen. ? ? ? Bones:? Moderate levoconvex lumbar scoliosis is seen.? Left L4-5 postoperative hardware is seen.? Lumbar spine degenerative changes are seen throughout.? Milder degenerative changes are seen elsewhere.? ? Bilateral hip arthroplasty hardware is seen. ? ? IMPRESSION:? Wall thickening is seen of the duodenum with surrounding inflamm atory change, which is likely related to the presenting history of nausea and vomiting.? When clinically appropriate, please consider upper endoscopy for further evaluation. ? There is a 2.7 cm left renal lesion that cannot be defined as a simple cyst.? This most likely represents a hyperdense cyst.? When clinically appropriate, please consider a follow-up dedicated renal ultrasound for further evaluation. ? 5.4 cm complex cystic lesion seen involving the right adnexal region.? In a patient of this age, differential diagnosis includes cystic ovarian neoplasm.? A follow-up pelvic ultrasound is recommended for further evaluation. ? ? ? Incidental note is made of: Levoconvex scoliotic curvature Lumbar spine degenerative change L4-5 postoperative hardware Bilateral hip arthroplasty hardware ? ? Note: No significant discrepancy from the preliminary report. ? Dictated by: Sal Orellana M.D. on 06/08/2021 at 6:54 ? ? Chest x-ray: Radiologist's Impression: PROCEDURE:? XR CHEST 1V ? INDICATIONS:? pain ? TECHNIQUE:? One view of the chest was acquired.? ? COMPARISON:? [facility], CR, CHEST 2 VIEW, 08/06/2009, 15:56.? [facility], CT, CT ABDOMEN PELVIS W CON, 06/08/2021, 7:00.? [facility], CR, CHEST 2 VIEW, , 12:31. ? FINDINGS:? ? Surgical changes and devices:? None.? ? Lungs and pleura:? Lungs are clear.? No pleural effusions or pneumothorax.? ? Mediastinum:? The cardiac contours are within normal limits. The aorta demonstrates calcification and tortuosity. ? Bones and chest wall:? No suspicious bony lesions.? Overlying soft tissues appear unremarkable.? ? IMPRESSION:? No acute portable chest abnormality can be seen for age. ? ? Dictated by: Sal Orellana M.D. on 06/08/2021 at 10:43 ? ? Approved by: Sal Orellana M.D. on 06/08/2021 at 10:44 ? echo: Radiologist's Impression: Echocardiography Report Signed Patient: Edith Matamoros MR#: [id number] : 1950 Acct:[id number] Age/Sex: 70 / F Date of Service: 06/08/21 Loc: ED Accession Number: [id number] ?? Procedure: EC echo doppler complete Ordering Provider: Tawnya Ken D.O. ? [facility] +[facility]+ : ? :? [address] ? : ? : : ? :? [place] ? : ? : : ? :? [id number] ? : ? : : ? : ? Phone: [phone] : ? : [phone]? [phone]? +---------+ ? Echocardiogram Report + + :Name: EDITH MATAMOROS? Study Date: 06/08/2021 ? Height: 67 in? : :[facility] ? ? ReadingLocation: ? Weight: 161 lb : : ? Gender: Female ? BSA: 1.8 m2? ? : :: 1950? Age: 70 yrs? BP: 138/61 mmHg: :Reason For Study: EKG CHANGES? : :Ordering Physician: SUELLEN, ? : :TAWNYA ? Performed By: Karlie Crystal? : :Referring: TAWNYA KEN ? : + + Interpretation Summary Normal sinus rhythm. ? Normal LV size, wall thickness, wall motion and LV systolic function. EF is 60-65%. ? Normal chamber sizes. ? No significant valvular abnormalities. ? Mildly enlarged ascending aorta measuring 4.1 cm diameter. ? No prior study available for comparison. ? Procedure: ? A two-dimensional transthoracic echocardiogram with color flow and Doppler was performed. The study quality was technically adequate. There is no prior echocardiogram noted for this patient. The patient was in sinus rhythm with heart rates between 65-85 bpm during the exam. Left Ventricle: ? The left ventricle is normal in size and wall thickness. The ejection fraction is estimated to be 60-65%. Diastolic parameters suggest a relaxation abnormality of the left ventricle, consistent with probable normal filling pressures. Right Ventricle: ? The right ventricle is normal in size and function. Atria: ? The left atrial size is normal. Right atrial size is normal. There is no Doppler evidence for an interatrial shunt. Mitral Valve: ? The mitral valve is normal in structure and function. There is trace mitral regurgitation. Aortic Valve: ? The aortic valve is not well visualized. There is no aortic valve stenosis. No aortic regurgitation is present. Tricuspid Valve: ? The tricuspid valve is normal in structure and function. There is a trace or physiologic amount of tricuspid regurgitation. Pulmonic Valve: ? The pulmonic valve is not well seen, but is grossly normal. There is no pulmonic valvular regurgitation. Great Vessels: ? The aortic root is normal size. The ascending aorta is mildly enlarged. The IVC is of normal diameter and collapses greater than 50% with a sniff. This suggests a low right atrial pressure of 3 mm Hg. Pericardium/ Pleura ? There is no pericardial effusion. There is no pleural effusion. ? MMode/2D Measurements & Calculations LVIDd: 3.9 cm? LVOT diam: 2.1 cm LVIDs: 2.7 cm? Ao root diam: 3.6 cm FS: 30.6 % ? asc Aorta Diam: 4.1 cm IVSd: 1.0 cm ? Ao Arch Diam (Prox Trans): 2.5 cm LVPWd: 1.1 cm LV titus. diameter/BSA (cm/m^2): 2.1 LV sys. diameter/BSA (cm/m^2): 1.5 ? LA A2 area: 20.1 cm2 ? RA long axis: 5.1 cm LA A4 area: 15.7 cm2 ? RA area: 16.3 cm2 LA length (vol): 5.0 cm? RA vol: 44.0 ml LA vol: 53.5 ml? RA : 23.8 ml/m2 LA vol index: 29.0 ml/m2 ? IVC diam: 1.7 cm ? RVD1 (basal): 3.4 cm RVD2 (mid): 2.8 cm TAPSE: 1.8 cm ? Doppler Measurements & Calculations Ao V2 max: 176.0 cm/sec? LVOT Max Jules: 112.7 cm/sec Ao V2 mean: 117.8 cm/sec ? LV V1 max P.1 mmHg Ao max P.4 mmHg ? LV V1 VTI: 25.3 cm Ao mean P.3 mmHg ? DARREN(I,D): 2.6 cm2 Ao V2 VTI: 35.4 cm ? DARREN(V,D): 2.3 cm2 ? sev ratio: 0.71 ? DARREN indexed to BSA (cm^2/m^2): 1.4 ? MV E max jules: 69.2 cm/sec? PA V2 max: 109.5 cm/sec MV A max jules: 91.1 cm/sec? PA V2 mean: 74.9 cm/sec MV E/A: 0.76 ? PA mean P.5 mmHg Med Peak E' Jules: 10.4 cm/sec ? ? ? PA pr(Accel): 43.0 mmHg E/E' med: 6.6 Lat Peak E' Jules: 10.3 cm/sec E/E' lat: 6.7 E/e' average: 6.7 MV dec time: 0.32 sec ? SV(LVOT): 91.6 ml ? Electronically signed by: Rola So M.D. on Reading Physician:06/08/2021 01:39 PM ECG Data Interpretation: EKG 1. Sinus rhythm rate 71 appear below 164 QRS [address] changes T-wave inversions V2 V3 V4 more pronounced previous EKG. EKG 2. Rhythm more pronounced T-wave inversions V3 V4 and V5 no ST changes. [facility] Narrative Medical decision making narrative: Patient seen initially by myself, sepsis workup was initiated patient is not hypotensive her tachycardia but has had some shaking chills so L bolus was ordered but not 30 cc/kilos fluid bolus. COVID swab. Patient signed out to Dr. Ken while initial work up pending. Patient signed out to me by Dr. Frank quintero seen evaluated her myself. She really has minimal epigastric pain if any she certainly has no chest pain is I took a while to get her nausea medication and fluids but they seem to have helped. She still does not feel quite her normal self. She is found have UTI but is not septic. She has T-wave inversions and multiple risk factors. She has a history of diabetes hypertension hyperlipidemia. T-wave inversions are certainly more pronounced than they have been in getting more pronounced in the emergency department. She has absolutely no chest pain. She has 2- troponins. No prior history of coronary artery disease. 11:15 Dr. So cardiology has been updated on patient's symptoms test results reviewed EKGs agrees that they are concerning. Recommend stat echocardiogram and PPI. If abnormal echocardiogram patient will need to be transferred for cardiac catheterization. 130 Dr. So has reviewed the echocardiogram which is within normal. At this time she recommend the outpatient follow-up with a probable stress test. T-wave inversion signs are still concerning however no need for admission to the hospital if other symptoms have cleared. Discussed results with patient and has been. They understand they actually have an appointment with PCP in 6 days. She overall is feeling better. Discharge Plan Departure Patient Disposition: Home Clinical Impression: Acute UTI Instructions: DI for Urinary Tract Infection (UTI) Activity Restrictions/Additional Instructions: *You have been diagnosed with UTI *What to do: Increase fluid intake as tolerated. I suspect that your nausea and vomiting may be from a bladder infection. Increase fluid intake with water, Gatorade, Pedialyte juice apple sauce Jell-O etc Fortunately heart workup is negative today. I have discussed case with Cardiology they do recommend that you follow up you may require some stress testing as. However you do not need to stay in the hospital for this today. *Continue to take medications as directed Macrobid 100 mg twice a day for 7 days Zofran 4 mg every 8 hours if needed for nausea vomiting *Follow up with your primary care provider in 2-3 days or call [phone] Follow-up with Cardiology, Dr. So *Return to ER if you should have persistent vomiting, increasing painor any new, worsening or concerning symptoms Prescriptions: No Action AMLODIPINE BESYLATE (NORVASC) 5 mg PO Q AM Qty: 0 0RF aspirin 81 MG tablet,delayed release (DR/EC) 81 mg PO BID Qty: 60 0RF Referrals: Aries Knight MD [Primary Care Provider] - Rola So MD [Physician] -
--- NOTE | 2021-06-08 06:23 | DI.CT.S_ITS ---
PROCEDURE: CT ABDOMEN PELVIS W CON INDICATIONS: +n/v TECHNIQUE: After the administration of oral and IV contrast, axial sections were acquired from the lung bases to the pubic symphysis. Coronal and sagittal reformats were performed. For radiation dose reduction, the following was used: automated exposure control, adjustment of mA and/or kV according to patient size. COMPARISON: [facility], , ABDOMEN LIMITED, 11/09/2018, 15:53. [facility], , ABDOMEN LIMITED, 01/12/2019, 16:41. FINDINGS: Image quality: There is artifact associated with the metallic hardware. Lung bases: Unremarkable. Heart: No significant findings. ABDOMEN: Liver: Unremarkable. Gallbladder: Unremarkable. Biliary ducts: Unremarkable. Pancreas: Unremarkable. Spleen: Unremarkable. Adrenal Glands: Unremarkable. Kidneys and Ureters: There is a low-density lesion seen along the anterior aspect of the left kidney that measures 2.7 cm and 29 Hounsfield units. Smaller likely cystic lesions are seen elsewhere within the kidneys. The kidneys demonstrate normal size and enhance symmetrically. There is no hydronephrosis. Stomach and Bowel: Focal generalized wall thickening is seen of the duodenum, with surrounding inflammatory change. Stomach, small bowel loops, and colon are otherwise unremarkable. Peritoneum: No abnormal intraperitoneal fluid. No free air. Ventral Wall: No hernia. Abdominal Nodes: No retroperitoneal or mesenteric adenopathy by size criteria. Vessels: Aorta and inferior vena cava are normal in size. PELVIS: Pelvic Organs: The uterus demonstrates normal size. Within the right adnexal region, there is a septated cystic lesion seen with calcification that measures 5.4 x 5.4 cm in greatest axial dimension. Bladder: Unremarkable. Pelvic Nodes: No enlarged lymph nodes. Miscellaneous: No inguinal hernias are seen. Bones: Moderate levoconvex lumbar scoliosis is seen. Left L4-5 postoperative hardware is seen. Lumbar spine degenerative changes are seen throughout. Milder degenerative changes are seen elsewhere. Bilateral hip arthroplasty hardware is seen. IMPRESSION: Wall thickening is seen of the duodenum with surrounding inflammatory change, which is likely related to the presenting history of nausea and vomiting. When clinically appropriate, please consider upper endoscopy for further evaluation. There is a 2.7 cm left renal lesion that cannot be defined as a simple cyst. This most likely represents a hyperdense cyst. When clinically appropriate, please consider a follow-up dedicated renal ultrasound for further evaluation. 5.4 cm complex cystic lesion seen involving the right adnexal region. In a patient of this age, differential diagnosis includes cystic ovarian neoplasm. A follow-up pelvic ultrasound is recommended for further evaluation. Incidental note is made of: Levoconvex scoliotic curvature Lumbar spine degenerative change L4-5 postoperative hardware Bilateral hip arthroplasty hardware Note: No significant discrepancy from the preliminary report. Dictated by: Sal Orellana M.D. on 06/08/2021 at 6:54 Approved by: Sal Orellana M.D. on 06/08/2021 at 7:00
[2021-06-08 06:43] LABS: Add Manual Diff / Slide Review NO; Basophils Absolute Auto 100 /uL (0-100); Basophils Percent Auto 0.7 % (0-2); Eosinophils Absolute Auto 0 /uL (0-450); Hematocrit 39.2 % (36-46); Lymphocytes Absolute Auto 800 /uL (1100-4500); Lymphocytes Percent Auto 8.6 % (25-40); Mean Corpuscular HGB Conc 33.1 % (30-36); Mean Corpuscular Hemoglobin 26.8 PG (26-34); Mean Corpuscular Volume 80.8 fL (80-100); Monocytes Absolute Auto 200 /uL (0-900); Monocytes Percent Auto 2.2 % (3-14); Neutrophils Absolute Auto 7700 /uL (1500-7000); Neutrophils Percent Auto 88.5 % (50-75); Platelet Count 268 X10^3/uL (150-400); Red Blood Cell Count 4.85 X10^6/uL (4.0-5.2); Red Cell Distribution Width 15.2 % (11.6-14.8); White Blood Cell Count 8.7 X10^3/uL (4.5-11.0)
[2021-06-08] MEDS: ONDANSETRON 4 MG/2 ML INJ IV ×2 (06:46→08:47)
[2021-06-08] MEDS: SODIUM CHLORIDE 0.9% 1,000 ML 1000 ML IV ×2 (06:46→09:47)
[2021-06-08 06:52] LABS: Lactate (Lactic Acid) 1.4 mmol/L (0.7-2.1)
[2021-06-08 06:53] LABS: Alanine Aminotransferase 10 IU/L (<35); Albumin 4.9 g/dL (3.5-5.0); Albumin Globulin Ratio 1.3 (1.0-2.8); Alkaline Phosphatase 111 U/L (38-126); Aspartate Aminotransferase 25 IU/L (14-36); Bilirubin Total 0.7 mg/dL (0.2-1.3); Blood Urea Nitrogen 11 mg/dL (7-17); Calcium 10.2 mg/dL (8.4-10.2); Carbon Dioxide 25 mmol/L (22-32); Chloride 99 mmol/L (98-107); Creatine Kinase 57 U/L (30-135); Estimated Glomerular Filt Rate > 60.0 mL/min (>60); Globulin 3.9 g/dL (1.7-4.1); Glucose 220 mg/dL (80-110); HEMOLYSIS < 15 (0-50); Lipase 92 U/L (23-300); Potassium 3.2 mmol/L (3.4-5.1); Sodium 137 mmol/L (137-145); Total Protein 8.8 g/dL (6.3-8.2)
[2021-06-08 06:57] LABS: COVID19 -Nasal RAPID Negative (Negative)
[2021-06-08 07:05] LABS: Troponin I < 0.012 ng/mL (0.01-0.034)
[2021-06-08 07:10] LABS: Procalcitonin 0.05 ng/mL (<0.5)
[2021-06-08] MEDS: PANTOPRAZOLE 40 MG VIAL IV (08:47)
[2021-06-08 09:31] LABS: Appearance Urine UA SL CLOUDY; Bilirubin Urine UA NEGATIVE (NEGATIVE); Color Urine UA YELLOW; Glucose Urine UA NEGATIVE (Negative); Ketones Urine UA 2+ (NEGATIVE); Leukocyte Esterase Urine UA TRACE (NEGATIVE); Nitrite Urine UA NEGATIVE (Negative); Occult Blood Urine UA 1+ (Negative); Protein Urine UA 1+ (Negative); Urobilinogen Urine UA 0.2 E.U./dL (0.2)
[2021-06-08 09:56] LABS: RBC Urine 0-1/HPF (0-5/HPF); Squamous Epithelial Cell Urine 0-1 /HPF (0-5/HPF); WBC Urine 10-30/HPF (0-5/HPF)
[2021-06-08 09:57] LABS: Bacteria Urine Many (>30); Culture Indicated Urine Specimen Cultured
[2021-06-08 10:08] LABS: Creatine Kinase 57 U/L (30-135)
[2021-06-08 10:20] LABS: Troponin I < 0.012 ng/mL (0.01-0.034)
--- NOTE | 2021-06-08 11:20 | DI.ECHO.S_ITS ---
[place] [facility]---------+ [facility] +---------+ : : [address] : : : : [id number] : : : : Phone: [phone]+ Echocardiogram Report + + :Name: TIFFANY MATAMOROS Study Date: 06/08/2021 Height: 67 in : :[facility] ReadingLocation: Weight: 161 lb : : Gender: Female BSA: 1.8 m2 : :: 1950 Age: 70 yrs BP: 138/61 mmHg: :Reason For Study: EKG CHANGES : :Ordering Physician: SUELLEN, : :MAXIMILIANO Performed By: Karlie Crystal : :Referring: MAXIMILIANO KEN : + + Interpretation Summary Normal sinus rhythm. Normal LV size, wall thickness, wall motion and LV systolic function. EF is 60-65%. Normal chamber sizes. No significant valvular abnormalities. Mildly enlarged ascending aorta measuring 4.1 cm diameter. No prior study available for comparison. Procedure: A two-dimensional transthoracic echocardiogram with color flow and Doppler was performed. The study quality was technically adequate. There is no prior echocardiogram noted for this patient. The patient was in sinus rhythm with heart rates between 65-85 bpm during the exam. Left Ventricle: The left ventricle is normal in size and wall thickness. The ejection fraction is estimated to be 60-65%. Diastolic parameters suggest a relaxation abnormality of the left ventricle, consistent with probable normal filling pressures. Right Ventricle: The right ventricle is normal in size and function. Atria: The left atrial size is normal. Right atrial size is normal. There is no Doppler evidence for an interatrial shunt. Mitral Valve: The mitral valve is normal in structure and function. There is trace mitral regurgitation. Aortic Valve: The aortic valve is not well visualized. There is no aortic valve stenosis. No aortic regurgitation is present. Tricuspid Valve: The tricuspid valve is normal in structure and function. There is a trace or physiologic amount of tricuspid regurgitation. Pulmonic Valve: The pulmonic valve is not well seen, but is grossly normal. There is no pulmonic valvular regurgitation. Great Vessels: The aortic root is normal size. The ascending aorta is mildly enlarged. The IVC is of normal diameter and collapses greater than 50% with a sniff. This suggests a low right atrial pressure of 3 mm Hg. Pericardium/ Pleura There is no pericardial effusion. There is no pleural effusion. MMode/2D Measurements & Calculations LVIDd: 3.9 cm LVOT diam: 2.1 cm LVIDs: 2.7 cm Ao root diam: 3.6 cm FS: 30.6 % asc Aorta Diam: 4.1 cm IVSd: 1.0 cm Ao Arch Diam (Prox Trans): 2.5 cm LVPWd: 1.1 cm LV titus. diameter/BSA (cm/m^2): 2.1 LV sys. diameter/BSA (cm/m^2): 1.5 LA A2 area: 20.1 cm2 RA long axis: 5.1 cm LA A4 area: 15.7 cm2 RA area: 16.3 cm2 LA length (vol): 5.0 cm RA vol: 44.0 ml LA vol: 53.5 ml RA : 23.8 ml/m2 LA vol index: 29.0 ml/m2 IVC diam: 1.7 cm RVD1 (basal): 3.4 cm RVD2 (mid): 2.8 cm TAPSE: 1.8 cm Doppler Measurements & Calculations Ao V2 max: 176.0 cm/sec LVOT Max Jules: 112.7 cm/sec Ao V2 mean: 117.8 cm/sec LV V1 max P.1 mmHg Ao max P.4 mmHg LV V1 VTI: 25.3 cm Ao mean P.3 mmHg DARREN(I,D): 2.6 cm2 Ao V2 VTI: 35.4 cm DARREN(V,D): 2.3 cm2 sev ratio: 0.71 DARREN indexed to BSA (cm^2/m^2): 1.4 MV E max jules: 69.2 cm/sec PA V2 max: 109.5 cm/sec MV A max jules: 91.1 cm/sec PA V2 mean: 74.9 cm/sec MV E/A: 0.76 PA mean P.5 mmHg Med Peak E' Jules: 10.4 cm/sec PA pr(Accel): 43.0 mmHg E/E' med: 6.6 Lat Peak E' Jules: 10.3 cm/sec E/E' lat: 6.7 E/e' average: 6.7 MV dec time: 0.32 sec SV([facility]): 91.6 ml Electronically signed by: Rola So M.D. on Reading Physician:06/08/2021 01:39 PM
--- NOTE | 2021-06-08 11:26 | DI.RAD.S_ITS ---
PROCEDURE: XR CHEST 1V INDICATIONS: pain TECHNIQUE: One view of the chest was acquired. COMPARISON: [facility], CR, CHEST 2 VIEW, 08/06/2009, 15:56. [facility], CT, CT ABDOMEN PELVIS W CON, 06/08/2021, 7:00. [facility], CR, CHEST 2 VIEW, 02/05/2016, 12:31. FINDINGS: Surgical changes and devices: None. Lungs and pleura: Lungs are clear. No pleural effusions or pneumothorax. Mediastinum: The cardiac contours are within normal limits. The aorta demonstrates calcification and tortuosity. Bones and chest wall: No suspicious bony lesions. Overlying soft tissues appear unremarkable. IMPRESSION: No acute portable chest abnormality can be seen for age. Dictated by: Sal Orellana M.D. on 06/08/2021 at 10:43 Approved by: Sal Orellana M.D. on 06/08/2021 at 10:44
== END 2021-06-08 14:28 | disposition home or self-care (01) ==
PROVIDERS: Emergency Medicine; Emergency Provider Emergency Medicine; PCP Internal Medicine
DX: N39.0 Urinary tract infection, site not specified (principal); R94.31 Abnormal electrocardiogram [ECG] [EKG]; Z20.822 Contact with and (suspected) exposure to COVID-19
CPT/HCPCS: 36415; 71045; 74177; 80053; 81001; 82550; 83605; 83690; 84145; 84484; 85025; 87040; 87077; 87086; 87186; 87635; 93005; 93010; 93306; 96361; 96374; 96375; 96376; 99284; 99285; C9803; C9113; J2405; Q9967

== ENCOUNTER → 2024-07-18 14:40 | Outpatient (CLI) | payer MEDICARE, OTHER, SELFPAY ==
--- NOTE | 2024-07-18 14:42 | DI.MG.S_ITS ---
MM screening mammo BI: 07/18/2024. BI-RADS: 1 CLINICAL: 73-year old female for bilateral screening mammogram. Tyrer-Cuzick lifetime risk of 4.4%. No personal or first-degree family history of breast cancer. PRIOR EXAMS 11/29/2020, 12/10/2017, 07/26/2015, 01/02/2015. MAMMOGRAPHY TECHNIQUE: 2D and 3D (tomosynthesis) digital mammographic views obtained, with additional images as needed for full coverage. Current study was also evaluated with a Computer Aided Detection (CAD) system. DENSITY C. The breasts are heterogeneously dense, which may obscure small masses. MAMMOGRAPHY FINDINGS Bilateral: No suspicious mass, asymmetry, microcalcification, or other abnormality seen. IMPRESSION: * No evidence of malignancy. RECOMMENDATIONS Bilateral * Annual screening mammography. OVERALL ASSESSMENT CATEGORY BI-RADS-1: Negative. The [employer] recommends annual screening mammography beginning at age 40 for women with average risk of breast cancer. ELECTRONICALLY SIGNED: Simon Dumont M.D. on 07/18/2024 at 05:54:49 PM PT Interpreting Station ID: [id number]
== END ==
PROVIDERS: PCP Family Medicine; Referring Provider Family Medicine; Visit Provider Family Medicine
DX: Z12.31 Encounter for screening mammogram for malignant neoplasm of breast (principal); R92.333 Mammographic heterogeneous density, bilateral breasts
CPT/HCPCS: 77063; 77067